=== PATIENT | male | born 1985 | race African-American/Black ===

== ENCOUNTER 2017-11-05 22:15 | Emergency (ER) | payer SELFPAY ==
--- NOTE | 2017-11-05 23:37 | EDM.PDOC ---
ED HPI GENERAL MEDICAL PROBLEM - General Chief Complaint: Chest Pain Stated Complaint: [facility] Time Seen by Provider: 11/05/17 22:19 Source of Information: Reports: Patient, RN Notes Reviewed - History of Present Illness INITIAL COMMENTS - FREE TEXT/NARRATIVE: 31-year-old male has been brought in by [facility] ambulance for chest discomfort. This started earlier today a few hours prior to arrival. The discomfort was an achy discomfort of the right anterior chest that was intermittent. The chest felt better, he took a nap but then after awakening the pain did come back. He felt the pain more with deep breathing and also with certain types of twisting type motion. He has not Been aware of any particular injury. 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 He has been off duty today. He has not Been ill, coughing or having other unusual symptoms. He has no known medical problems. Chest Pain Score (Numeric/FACES): 3 - Related Data Allergies Allergy/AdvReac Type Severity Reaction Status Date / Time No Known Allergies Allergy Verified 11/05/17 22:23 Home Meds: Home Meds . [No Known Home Meds] 11/05/17 [History] Past Medical History - Past Health History Medical/Surgical History: Denies Medical/Surgical History Social & Family History - Tobacco Use Smoking Status *Q: Never Smoker - Caffeine Use Caffeine Use: Reports: Coffee - Recreational Drug Use Recreational Drug Use: No ED ROS GENERAL - Review of Systems Review Of Systems: See Below Constitutional: Denies: Fever, Chills, Diaphoresis HEENT: Denies: Sinus Problem, Throat Pain Respiratory: Reports: Pleuritic Chest Pain (Mild, no better). Denies: Shortness of Breath, Cough Cardiovascular: Reports: Chest Pain (Intermittent this past afternoon early evening, now gone) GI/Abdominal: Denies: Abdominal Pain, Nausea, Vomiting Musculoskeletal: Denies: Neck Pain, Shoulder Pain, Back Pain Skin: Reports: No Symptoms Neurological: Reports: No Symptoms ED EXAM, GENERAL - Physical Exam Exam: See Below General Appearance: Alert, No Apparent Distress Eye Exam: Bilateral Eye: PERRL Throat/Mouth: Normal Inspection Neck: Supple Respiratory/Chest: Lungs Clear, Normal Breath Sounds, Chest Non-Tender Cardiovascular: Regular Rate, Rhythm GI/Abdominal: Soft, Non-Tender Back Exam: No: CVA Tenderness (L), CVA Tenderness (R) Extremities: Normal Inspection, Normal Range of Motion Neurological: Alert, Oriented, No Motor/Sensory Deficits Skin Exam: Warm, Dry, Normal Color EKG INTERPRETATION EKG Date: 11/05/17 Rhythm: NSR [place]: Normal P-Wave: Present QRS: Normal ST-T: Normal Course - Vital Signs Last Recorded V/S: Last Vital Signs Temp 97.6 F 11/05/17 22:19 Pulse 90 11/05/17 22:19 Resp 18 11/05/17 22:19 BP 125/79 11/05/17 22:19 Pulse Ox 100 11/05/17 22:19 - Orders/Labs/Meds Orders: Active Orders 24 hr Category Date Time Status EKG Documentation Completion [RC] ASDIRECTED Care 11/05/17 22:23 Active Chest 1V Frontal [CR] Stat Exams 11/05/17 22:40 Taken EKG 12 Lead [EK] Stat Ther 11/05/17 22:23 Ordered Departure - Departure Time of Disposition: 23:35 Disposition: Home, Self-Care 01 Condition: Fair Clinical Impression: Atypical chest pain Instructions: Nonspecific Chest Pain Referrals: PCP,None [Primary Care Provider] - Forms: ED Department Discharge Additional Instructions: Your heart and lungs are checking out very well tonight, This appears to be a muscle or musculoskeletal discomfort that you have had today, you may take Tylenol or ibuprofen 2-3 times a day for that, try avoid heavy lifting for a few days, follow up clinic if symptoms are not resolving within 2-3 days as expected. Return to ED as needed if symptoms worsening in any way. - My Orders Last 24 Hours: My Active Orders 11/05/17 22:23 EKG Documentation Completion [RC] ASDIRECTED EKG 12 Lead [EK] Stat 11/05/17 22:40 Chest 1V Frontal [CR] Stat - Assessment/Plan Last 24 Hours: My Active Orders 11/05/17 22:23 EKG Documentation Completion [RC] ASDIRECTED EKG 12 Lead [EK] Stat 11/05/17 22:40 Chest 1V Frontal [CR] Stat
--- NOTE | 2017-11-06 06:58 | CR ---
Chest: Portable view of the chest was obtained. Comparison: No prior chest x-ray. Heart size and mediastinum are normal. Lungs are clear. Bony structures are unremarkable. Impression: 1. Nothing acute is seen on portable chest x-ray. Diagnostic code #1
== END 2017-11-05 23:47 | disposition home or self-care (01) ==
LOC: JD.ED 22:15
DX: R07.89 Other chest pain (principal)
CPT/HCPCS: 71045; 71045-26; 93005; 96361; 96374; 96375; 96376; 99285-25